=== PATIENT | male | born 1940 ===

== ENCOUNTER 2016-10-07 11:44 | Inpatient (IN) | payer MEDICARE, MEDICAID ==
[2016-10-07] MEDS ORDERED: Piperacillin/Tazobact 3.375 gm 100 ML IV STA (12:36)
--- NOTE | 2016-10-07 12:39 | C.PDOC ---
History Of Present Illness 76 y/o male sent to the ED by Dr. Hernandez for post-op wound infection, is s/p appendectomy 13 days ago performed at [facility]. Pt states he has continued to have pain since operation, and the area has become increasingly more swollen and red. Pt saw PMD Dr. Szymanski, was given Rxs for Bactrim and Doxycycline with no improvement. He denies nausea, vomiting, diarrhea, chest pain, SOB, fever. Pt's last meal was breakfast at 0745 this morning. Time Seen by Provider: 10/07/16 12:06 Chief Complaint (Nursing): Abnormal Skin Integrity History Per: Patient History/Exam Limitations: no limitations Onset/Duration Of Symptoms: Days Current Symptoms Are (Timing): Worse Quality Of Symptoms: Painful, Swollen Severity: Moderate Past Medical History Reviewed: Historical Data, Nursing Documentation, Vital Signs Vital Signs: Last Vital Signs Temp 98.3 F 10/08/16 15:10 Pulse 92 H 10/08/16 15:10 Resp 20 10/08/16 15:10 BP 131/67 10/08/16 15:10 Pulse Ox 95 10/08/16 15:10 - Medical History PMH: HTN, Hypercholesterolemia Surgical History: Appendectomy, CABG (AUGUST 29, 2001 PER PATIENT) - [employer] Procedures DRAINAGE OF ABDOMINAL WALL, OPEN APPROACH (10/07/16) Family History: States: No Known Family Hx - Social History Hx Alcohol Use: No Hx Substance Use: No - Immunization History Hx Tetanus Toxoid Vaccination: No Hx Influenza Vaccination: No Hx Pneumococcal Vaccination: No Review Of Systems Except As Marked, All Systems Reviewed And Found Negative. Constitutional: Negative for: Fever Cardiovascular: Negative for: Chest Pain Respiratory: Negative for: Shortness of Breath Gastrointestinal: Positive for: Other (post appendectomy wound infection, increased swelling and redness). Negative for: Nausea, Vomiting, Diarrhea Physical Exam - Physical Exam Appears: Non-toxic, In Acute Distress (in mild discomfort) Skin: Warm, Dry, No Rash Head: Normacephalic Oral Mucosa: Moist Cardiovascular: Rhythm Regular Respiratory: Normal Breath Sounds, No Rales, No Rhonchi, No Wheezing Gastrointestinal/Abdominal: Bowel Sounds, Soft, Tenderness (mild diffuse TTP greatest at RLQ), No Guarding, No Rebound, Other (6 cm surgical incision at RLQ swollen, tender to palpation, indurated, & erythematous. ) Extremity: Normal ROM Extremity: Bilateral: Atraumatic Neurological/Psych: Oriented x3 ED Course And Treatment - Laboratory Results Result Diagrams: 10/08/16 06:05 10/08/16 06:05 ECG: Interpreted By Me, Viewed By Me (NSR 67 bpm, normal axis, T wave inversions I, aVL, V3-V6, no acute ST changes) ECG Interpretation: Abnormal O2 Sat by Pulse Oximetry: 95 (on room air) Pulse Ox Interpretation: Normal - Other Rad CXR X-Ray: Viewed By Me, Read By Radiologist Interpretation: Accession No. : [id number]. Patient Name / ID : ALFA MCKINNEY / [id number]. Exam Date : 10/07/2016 12:28:25 ( Approved ). Study Comment : Sex / Age : M / 76Y. Creator : Toi Owusu MD. Dictator : Toi Owusu MD. Waiter And Cashier : Transport Technician : Toi Owusu MD. Approver2 : Report Date : 10/07/2016 13:02:36. My Comment : . PROCEDURE: CHEST RADIOGRAPH, 1 VIEW. HISTORY: Admission. Wound check. COMPARISON: None available. FINDINGS: LUNGS: No discrete infiltrates. PLEURA: No pneumothorax or pleural fluid seen. CARDIOVASCULAR: Cardiomegaly, pulmonary vascular congestion/ mild. OSSEOUS STRUCTURES: No significant abnormalities. VISUALIZED UPPER ABDOMEN: Normal. OTHER FINDINGS: None. Degree of severity: IMPRESSION: No active disease. . Cardiomegaly and mild pulmonary vascular congestion. Progress Note: Plan: Blood work, CXR, EKG ordered and reviewed. Patient given IV Zosyn. Dr. Hernandez requests admission to Dr. Stewart with him for surgical consult- patient to be taken to OR for I&D. 1:45pm- Spoke with Dr. Stewart, he agrees with admission to his service for postop infection with Dr. Hernandez for surgery. information services vice president notified. - Physician Consult Information Physician Contacted: Abhijeet Stewart Jr. Disposition - Disposition Disposition: HOSPITALIZED Disposition Time: 13:46 Condition: STABLE - Clinical Impression Clinical Impression: Herpes zoster, Renal failure, Postoperative infection - Scribe Statement The provider has reviewed the documentation as recorded by the Joryibursula Beltran Provider Attestation: All medical record entries made by the Joryibe were at my direction and personally dictated by me. I have reviewed the chart and agree that the record accurately reflects my personal performance of the history, physical exam, medical decision making, and the department course for this patient. I have also personally directed, reviewed, and agree with the discharge instructions and disposition. Decision To Admit - Pt Status Changed To: Hospital Disposition Of: Inpatient - Admit Certification Admit to Inpatient:: After my assessment, the patient will require hospitalization for at least two midnights. This is because of the severity of symptoms shown, intensity of services needed, and/or the medical risk in this patient being treated as an outpatient. - InPatient: Physician Admission Certification: I certify that this patient requires 2 or more midnights of care for the following reason:: see notes - . Bed Request Type: Regular Admitting Physician: Abhijeet Stewart Jr. Patient Diagnosis: Renal failure, Postoperative infection, Abscess
[2016-10-07 12:56] LABS: BASO # 0.2 K/uL (0.0-0.2); EOS # 0.2 K/uL (0.0-0.7); EOS % 2.7 % (0.0-4.0); HEMATOCRIT 30.6 % (35.0-51.0); LYMPH # 1.1 K/uL (1.0-4.3); LYMPH % 13.5 % (20.0-40.0); MEAN CELL VOLUME 87.6 fL (80.0-94.0); MEAN PLATELET VOLUME 7.7 fL (7.2-11.7); MONO # 0.7 K/uL (0.0-0.8); MONO % 8.3 % (0.0-10.0); RED CELL DISTRIBUTION WIDTH 17.5 % (11.5-14.5); WHITE BLOOD COUNT 7.8 K/uL (4.8-10.8)
[2016-10-07 13:04] LABS: INR 1.1
--- NOTE | 2016-10-07 13:04 | RAD ---
PROCEDURE: CHEST RADIOGRAPH, 1 VIEW HISTORY: Admission. Wound check COMPARISON: None available. FINDINGS: LUNGS: No discrete infiltrates. PLEURA: No pneumothorax or pleural fluid seen. CARDIOVASCULAR: Cardiomegaly, pulmonary vascular congestion/ mild. OSSEOUS STRUCTURES: No significant abnormalities. VISUALIZED UPPER ABDOMEN: Normal. OTHER FINDINGS: None. Degree of severity: IMPRESSION: No active disease. . Cardiomegaly and mild pulmonary vascular congestion.
[2016-10-07 13:07] LABS: POTASSIUM 4.5 mmol/L (3.6-5.2)
[2016-10-07 13:10] LABS: BILIRUBIN,TOTAL 0.4 mg/dL (0.2-1.3); CALCIUM 8.7 mg/dl (8.6-10.4); TOTAL PROTEIN 6.3 g/dL (6.3-8.3)
[2016-10-07] MEDS ORDERED: Piperacillin/Tazobact 3.375 gm 100 ML IVPB ONE (13:22)
--- NOTE | 2016-10-07 14:32 | CP.PCM.HP ---
History of Present Illness - History of Present Illness History of Present Illness: cc: "abdominal wound" HPI: Patient is a 76 year old male with PMHx of Hypertension, Diabetes, CAD s/p cabg, hx of CVA 23 years ago, presenting to the ED after being sent in by Dr. Hernandez for abdominal abscess. Patient's daughter at bedside giving history. Patient had an appendectomy about [address] Hernandez at [facility]. Patient started developing erythema and pain around the surgical site , with clear drainage, per the daughter. He tried taking tylenol for the pain with minimal relief. He saw his PMD, Dr. Szymanski, who gave him Bactrim and Doxycyline with no relief. Patient then got in touch with Dr. Hernandez who instructed them to come to the hospital PMD: Dr. Szymanski PMHx: As stated above PSHx: CABG in 2001, CVA 23 years ago, umbilical Hernia repair Allergies: NKDA Fam hx : Noncontributory Social hx: quit smoking 23 years ago, smoked about 20 years, 1ppd. Social alcohol use. Denies drug use. Lives at home alone, daughter lives next door. Present on Admission - Present on Admission Any Indicators Present on Admission: No Review of Systems - Constitutional Constitutional: absent: Anorexia, Chills, Fever, Frequent Falls, Weakness - EENT Eyes: absent: Blurred Vision, Change in Vision Nose/Mouth/Throat: absent: Nasal Congestion, Odynophagia, Facial Pain, Neck Pain - Cardiovascular Cardiovascular: absent: Chest Pain, Claudication, Irregular Heart Rhythm, Leg Edema, Palpitations, Pedal Edema - Respiratory Respiratory: absent: Cough, Dyspnea, Hemoptysis, Dyspnea on Exertion, Wheezing - Gastrointestinal Gastrointestinal: Abdominal Pain. absent: Constipation, Diarrhea, Nausea, Vomiting - Musculoskeletal Musculoskeletal: absent: Myalgias, Numbness, Tingling - Integumentary Integumentary: absent: Change in Hair, Striae, Swelling, Wounds - Neurological Neurological: absent: Abnormal Movements, Tingling, Tremor, Weakness - Psychiatric Psychiatric: absent: Anxiety, Panic Attacks, Paranoia, Suicidal Ideation - Endocrine Endocrine: absent: Fatigue, Palpitations Past Patient History - Past Social History Smoking Status: Former Smoker Chewing Tobacco Use: No Cigar Use: No Alcohol: Occasional Drugs: Denies Home Situation {Lives}: Alone - CARDIAC Hx Hypercholesterolemia: Yes Hx Hypertension: Yes - NEUROLOGICAL HX Cerebrovascular Accident: Yes (26 YEARS AGO PER DAUGHTER) - ENDOCRINE/METABOLIC Hx Diabetes Mellitus Type 2: Yes - PSYCHIATRIC Hx Substance Use: No - SURGICAL HISTORY Hx Appendectomy: Yes Hx Coronary Artery Bypass Graft: Yes (AUGUST 29, 2001 PER PATIENT) - ANESTHESIA Hx Anesthesia: Yes Hx Anesthesia Reactions: No Meds Allergies/Adverse Reactions: Allergies Allergy/AdvReac Type Severity Reaction Status Date / Time No Known Allergies Allergy Verified 10/07/16 11:53 Physical Exam - Constitutional Appears: Non-toxic, No Acute Distress - Head Exam Head Exam: ATRAUMATIC, NORMAL INSPECTION, NORMOCEPHALIC - Eye Exam Pupil Exam: NORMAL ACCOMODATION, PERRL - ENT Exam ENT Exam: Mucous Membranes Moist - Respiratory Exam Respiratory Exam: Clear to Auscultation Bilateral, NORMAL BREATHING PATTERN. absent: Prolonged Expiratory Phase, Rales, Rhonchi, Wheezes - Cardiovascular Exam Cardiovascular Exam: REGULAR RHYTHM, +S1, +S2 - GI/Abdominal Exam GI & Abdominal Exam: Hernia, Normal Bowel Sounds, Soft, Tenderness (tenderness along surgical site in RLQ. erythematous with induration measuring at least 4" in diameter. No active drainage noted.). absent: Firm, Guarding Additional comments: umbilical hernia present - Neurological Exam Neurological exam: Alert, CN II-XII Intact, Oriented x3 - Psychiatric Exam Psychiatric exam: Normal Affect, Normal Mood - Skin Skin Exam: Dry, Intact, Normal Color, Warm Results - Vital Signs Recent Vital Signs: Last Vital Signs Temp 97.5 F L 10/07/16 14:23 Pulse 67 10/07/16 14:23 Resp 16 10/07/16 14:23 BP 120/61 10/07/16 14:23 Pulse Ox 96 10/07/16 14:23 - Labs Result Diagrams: 10/07/16 12:49 10/07/16 12:49 Assessment & Plan (1) Abdominal abscess Status: Acute Comment: Consult Surgery- Dr. Hernandez- scheduled for OR today. Given one dose of Zosyn 3.375gm IVPB in ED (2) Diabetes Status: Acute Comment: Continue Januvia 25mg PO Daily. Accuchecks (3) Hypertension Status: Acute Comment: Continue home meds: Valsartan 320mg PO Daily (Losartan equivalent). Norvasc 5mg BID (4) BPH (benign prostatic hyperplasia) Status: Acute Comment: Continue Flomax 0.4mg PO HS. Continue Tolterodime 4mg PO Daily (5) Prophylactic measure Status: Acute Comment: Protonix 40mg PO Daily. SCDs. Hold anticoagulation for pending surgery
[2016-10-07] MEDS ORDERED: Propofol 10 mg/ml Inj (20 ML) ONE (16:38)
[2016-10-07] MEDS ORDERED: Midazolam 2 MG/2 ML VIAL ONE (16:38)
[2016-10-07] MEDS ORDERED: Lactated Ringer's 1,000 ML IV ONE ×3 (16:40→18:30)
[2016-10-07] MEDS ORDERED: Succinylcholine Chloride 20 mg/ml Syr (5 ml) IV ONE (17:07)
[2016-10-07] MEDS ORDERED: HYDROmorphone 0.5 mg/0.5 ml ISec IVP PRN (17:16)
--- NOTE | 2016-10-07 18:43 | OP ---
PROCEDURE DATE: 10/07/2016 PREOPERATIVE DIAGNOSIS: Infected abdominal wall wound abscess. POSTOPERATIVE DIAGNOSIS: Infected abdominal wall wound abscess. PROCEDURE PERFORMED: Incision and drainage of abdominal wall wound abscess. SURGEON: Dion Hernandez MD ANESTHESIA: General. ESTIMATED BLOOD LOSS: 10 mL. POSTOPERATIVE CONDITION: Stable. INDICATIONS FOR SURGERY: This is a 76-year-old male who presents with a right lower quadrant wound i nfection after an appendectomy, which was performed 10 days ago in another hospital. GROSS FINDINGS: There was a small collection laterally in the wound. It did not extend to the rest of the wound, which was a good finding. The patient had been taken to the OR under sedation due to hi s previous stroke and poor physical health. PROCEDURE: The patient was taken to the operating room. The area was prepped and draped. The previ ous clips were removed and the lateral portion of the wound was opened and the pus was drained and cu ltured. The wound was irrigated with saline, packed with wet saline gauze. The patient tolerated pr ocedure well, returned to recovery room in stable condition. Dion Hernandez MD cc: [id number] TT: 10/07/2016 18:42:45 [email or web address]
[2016-10-07] MEDS: (Novolin R) Insulin Human Regular 100 units/ml vial SC SCH ×2 (19:40→22:11)
[2016-10-07] MEDS: Lactated Ringer's 1,000 ML IV SCH (20:00)
[2016-10-07] MEDS: metroNIDAZOLE IV 500 mg/100 ml 100 ML IVPB SCH (20:01)
[2016-10-08] MEDS: metroNIDAZOLE IV 500 mg/100 ml 100 ML IVPB SCH ×2 (02:11→09:50)
[2016-10-08] MEDS: Lactated Ringer's 1,000 ML IV SCH (03:30)
[2016-10-08 05:10] VITALS: O2SAT 95
[2016-10-08 06:20] LABS: POTASSIUM 4.4 mmol/L (3.6-5.2)
[2016-10-08] MEDS: Sodium Chloride 0.9% 1,000 ML IV SCH ×2 (06:20→11:30)
[2016-10-08 06:21] LABS: IRON 55 ug/dL (49-181)
[2016-10-08 06:22] LABS: ALB/GLOB RATIO 0.9 (1.0-2.1); BILIRUBIN,TOTAL 0.5 mg/dL (0.2-1.3); TOTAL PROTEIN 5.5 g/dL (6.3-8.3)
[2016-10-08 06:23] LABS: CALCIUM 8.2 mg/dl (8.6-10.4); MAGNESIUM 1.7 mg/dL (1.6-2.3); PHOSPHOROUS 3.5 mg/dL (2.5-4.5)
[2016-10-08 06:25] LABS: BASO # 0.1 K/uL (0.0-0.2); BASO % 1.1 % (0.0-2.0); EOS # 0.3 K/uL (0.0-0.7); HEMATOCRIT 27.3 % (35.0-51.0); LYMPH # 1.4 K/uL (1.0-4.3); LYMPH % 13.4 % (20.0-40.0); MEAN CELL VOLUME 86.6 fL (80.0-94.0); MEAN CORPUSCULAR HEMOGLOBIN 28.4 pg (27.0-31.0); MEAN CORPUSCULAR HGB CONC 32.8 g/dL (33.0-37.0); MEAN PLATELET VOLUME 7.6 fL (7.2-11.7); MONO # 0.8 K/uL (0.0-0.8); MONO % 7.1 % (0.0-10.0); RED CELL DISTRIBUTION WIDTH 16.9 % (11.5-14.5); WHITE BLOOD COUNT 10.5 K/uL (4.8-10.8)
[2016-10-08] MEDS: (Novolin R) Insulin Human Regular 100 units/ml vial SC SCH ×3 (07:30→17:16)
[2016-10-08 07:57] LABS: FOLATE 12.8 ng/mL
--- NOTE | 2016-10-08 11:47 | CARD ---
APPROVED REPORT EKG Measurement Heart [id number] [id number] <Conclusion> Normal sinus rhythm T wave abnormality, consider anterolateral ischemia Abnormal ECG
[2016-10-08] MEDS ORDERED: Enoxaparin 40 mg Syringe SC SCH (12:00)
[2016-10-08 16:51] VITALS: BP 131/67; PULSE 92; RESP 20; TEMP 98.3
--- NOTE | 2016-10-08 22:33 | CP.PCM.DIS ---
Provider - Provider Date of Admission: 10/07/16 13:46 Attending physician: Abhijeet Stewart Jr, MD Time Spent in preparation of Discharge (in minutes): 34 Hospital Course - Lab Results Lab Results: Micro Results 10/07/16 17:30 Abdomen Gram Stain - Final 10/07/16 17:30 Abdomen Wound Culture - Preliminary Gram Negative Randal Most Recent Lab Values WBC 10.5 K/uL (4.8-10.8) 10/08/16 06:05 RBC 3.16 Mil/uL (4.40-5.90) L 10/08/16 06:05 Hgb 9.0 g/dL (12.0-18.0) L 10/08/16 06:05 Hct 27.3 % (35.0-51.0) L 10/08/16 06:05 MCV 86.6 fL (80.0-94.0) 10/08/16 06:05 MCH 28.4 pg (27.0-31.0) 10/08/16 06:05 MCHC 32.8 g/dL (33.0-37.0) L 10/08/16 06:05 RDW 16.9 % (11.5-14.5) H 10/08/16 06:05 Plt Count 432 K/uL (130-400) H 10/08/16 06:05 MPV 7.6 fL (7.2-11.7) 10/08/16 06:05 Neut % (Auto) 75.4 % (50.0-75.0) H 10/08/16 06:05 Lymph % (Auto) 13.4 % (20.0-40.0) L 10/08/16 06:05 [place] % (Auto) 7.1 % (0.0-10.0) 10/08/16 06:05 Eos % (Auto) 3.0 % (0.0-4.0) 10/08/16 06:05 Baso % (Auto) 1.1 % (0.0-2.0) 10/08/16 06:05 Neut # 8.0 K/uL (1.8-7.0) H 10/08/16 06:05 Lymph # 1.4 K/uL (1.0-4.3) 10/08/16 06:05 [place] # 0.8 K/uL (0.0-0.8) 10/08/16 06:05 Eos # 0.3 K/uL (0.0-0.7) 10/08/16 06:05 Baso # 0.1 K/uL (0.0-0.2) 10/08/16 06:05 PT 12.3 SECONDS (9.7-12.2) H 10/07/16 12:49 INR 1.1 10/07/16 12:49 APTT 30 SECONDS (21-34) 10/07/16 12:49 Sodium 139 mmol/L (132-148) 10/08/16 06:05 Potassium 4.4 mmol/L (3.6-5.2) 10/08/16 06:05 Chloride 107 mmol/L (98-107) 10/08/16 06:05 Carbon Dioxide 20 mmol/L (22-30) L 10/08/16 06:05 Anion Gap 16 (10-20) 10/08/16 06:05 BUN 32 mg/dL (9-20) H 10/08/16 06:05 Creatinine 2.8 MG/DL (0.8-1.5) H 10/08/16 06:05 Est GFR ( Amer) 27 10/08/16 06:05 Est GFR (Non-Af Amer) 22 10/08/16 06:05 POC Glucose (mg/dL) 208 mg/dL (65-110) H 10/08/16 16:26 Random Glucose 73 mg/dL (75-110) L 10/08/16 06:05 Calcium 8.2 mg/dl (8.6-10.4) L 10/08/16 06:05 Phosphorus 3.5 mg/dL (2.5-4.5) 10/08/16 06:05 Magnesium 1.7 mg/dL (1.6-2.3) 10/08/16 06:05 Iron 55 ug/dL (49-181) 10/08/16 06:05 TIBC 219 ug/dL (250-450) L 10/08/16 06:05 % Saturation 25 (20-55) 10/08/16 06:05 Ferritin 59.1 ng/mL 10/08/16 06:05 Total Bilirubin 0.5 mg/dL (0.2-1.3) 10/08/16 06:05 AST 18 U/L (17-59) 10/08/16 06:05 ALT 21 U/L (21-72) D 10/08/16 06:05 Alkaline Phosphatase 61 U/L (38-126) 10/08/16 06:05 Total Protein 5.5 g/dL (6.3-8.3) L 10/08/16 06:05 Albumin 2.6 g/dL (3.5-5.0) L 10/08/16 06:05 Globulin 2.9 gm/dL (2.2-3.9) 10/08/16 06:05 Albumin/Globulin Ratio 0.9 (1.0-2.1) L 10/08/16 06:05 Vitamin B12 841 pg/mL (239-931) 10/08/16 06:05 Folate 12.8 ng/mL 10/08/16 06:05 Blood Type B NEGATIVE 10/07/16 12:49 Antibody Screen Positive 10/07/16 12:49 Antibody Identification Anti Fya 10/07/16 12:49 Antigen Identification Fya Antigen - NEGATIVE 10/07/16 12:49 - Hospital Course Hospital Course: HPI: Patient is a 76 year old male with PMHx of Hypertension, Diabetes, CAD s/p cabg, hx of CVA 23 years ago, presenting to the ED after being sent in by Dr. Hernandez for abdominal abscess. Patient's daughter at bedside giving history. Patient had an appendectomy about [address] Hernandez at [facility]. Patient started developing erythema and pain around the surgical site , with clear drainage, per the daughter. He tried taking tylenol for the pain with minimal relief. He saw his PMD, Dr. Szymanski, who gave him Bactrim and Doxycyline with no relief. Patient then got in touch with Dr. Hernandez who instructed them to come to the hospital. Hospital Course: Pt was taken to the OR for Incision and Drainage of abdominal wall wound with Dr. Hernandez. Pt tolerated procedure well, as per Dr. Hernandez. Pt given a dose of vancomycin and started on flagyl. Pt restarted on home medications for diabetes, HTN, and hypercholesterolemia. Post operative instructions as per Dr. Hernandez. Discharge Exam - Head Exam Head Exam: ATRAUMATIC, NORMAL INSPECTION, NORMOCEPHALIC - Eye Exam Eye Exam: EOMI, PERRL - ENT Exam ENT Exam: Mucous Membranes Moist. absent: Mucous Membranes Dry - Respiratory Exam Respiratory Exam: Clear to PA & Lateral. absent: Rales, Wheezes - Cardiovascular Exam Cardiovascular Exam: Gallop, +S1, +S2. absent: Tachycardia - GI/Abdominal Exam GI & Abdominal Exam: Normal Bowel Sounds. absent: Distended, Firm, Guarding, Tenderness Additional comments: Wound clean and dry - Extremities Exam Extremities exam: full ROM - Neurological Exam Neurological exam: Alert, Oriented x3 - Psychiatric Exam Psychiatric exam: Normal Affect, Normal Mood - Skin Skin Exam: Normal Color, Warm Discharge Plan - Follow Up Plan Condition: FAIR Disposition: HOME/ ROUTINE Patient education suggested?: Yes Instructions: Heart Healthy Diet (DC), Acute Wound Care (DC), Abscess (GEN), Incision and Drainage (DC) Additional Instructions: SEE POST-OPERATIVE INSTRUCTIONS Referrals: Dion Hernandez MD [Staff Provider] -
--- NOTE | 2016-10-10 20:42 | CON ---
DATE: 10/08/2016 LOCATION: [id number] Phillip Kennedy to Dr. Stewart. I was called for GI consultation by the admitting medical team on 10/08/2016 as requested by the admit doctors' hospital medical team as well as the patient's own family. The entire chart is reviewed, including but not limited to that the most recent lab and radiology juana dy results, current and previous medication list, current and the previous medical events, allergy to medication list as well as all the available current and the previous medical record. Case discusse d at length with the staff on the floor. HISTORY OF PRESENT ILLNESS: This is a 76 old male, very well known case for me from previous several admissions as well as office visits, he is my private patient. He was admitted to the [facility] the Emergency Room with status post appendectomy due to postoperative wound infection with right lower quadrant abdominal pain since the surgery about 13 days prior to his admission, with anterior a bdominal wall cellulitis like picture. No reported active bleeding but with period of mild nausea with dyspepsia, but no vomiting, no diarrh ea, no chest pain or palpitation. PAST MEDICAL HISTORY: Including but not limited to hypertension, CVA, hyperlipidemia, coronary arter y disease, status post coronary artery bypass graft, known history of peptic ulcer disease, known his tory of colon polyps. The patient is with status post appendectomy. Known history of severe ____ . CURRENT MEDICATIONS: Medication lists were reviewed. FAMILY HISTORY: Unknown. SOCIAL HISTORY: No recent history of cigarette smoking or alcohol intake. The patient used to drink several years ago excessively. LABORATORY DATA: After being admitted to the hospital, initial blood workup showed low hemoglobin of 9.8 with low hematocrit 30.6 with thrombocytosis of 446, with low CO2 content of 20 indicative of me tabolic acidosis, with increased blood glucose level to 132 with increased BUN 35, creatinine 3.1. Chest x-ray showed evidence of cardiomegaly with mild pulmonary congestion. PHYSICAL EXAMINATION: GENERAL: A 76-year-old male appeared to be awake, alert, oriented, complaining of lower abdominal pa in. VITAL SIGNS: Afebrile with pulse of 84, respiratory rate 20-22, blood pressure 120/68. HEENT: Showed pale, dry oral mucoid membrane. Nonicteric sclerae. LUNGS: Few scattered crepitation with few rhonchi bilaterally and a few rales. Breathing sounds are present bilaterally. HEART: Positive S1 and S2. ABDOMEN: Soft with mild generalized tenderness, but mainly in the right lower quadrant area with hyp er-erythematous mucosa at the level of the anterior abdominal wall. No mass or organomegaly. No lars ound tenderness or guarding. EXTREMITIES: With right-sided weakness. No clubbing or cyanosis. NEUROLOGIC: No new reported neurological deficit, sensory or motor. The patient appears to be awake , alert and oriented. IMPRESSION: 1. Status post appendectomy with evidence of mild anterior abdominal wall cellulitis. 2. Known history of peptic ulcer disease with a colon polyp. 3. Anemia, most likely secondary to above. 4. Known history of hypertension, coronary artery disease, status post coronary artery bypass graft as well as history of hyperlipidemia. SUGGESTION: 1. Agree with your plan. 2. Guaiac all the stool ____ x 3. Proton pump inhibitors. Cancer markers. 3. Adjust oral intake. Sectional abdominal and pelvic CAT scan to rule out possible intrapelvic abs cess formation. 4. Further recommendations to follow. Thank you for letting me participate in your patient's case management. Phillip Kennedy MD cc: 14 TT: 10/10/2016 20:41:16 Confirmation # [id number] Dictation # [id number] [email or web address]
== END 2016-10-08 18:25 | disposition home health service (06) | DRG 857 ==
LOC: C.ER 11:44 → C.9E 13:46 → C.6T 19:22
PROVIDERS: ADMIT Internal Medicine; ATTEND Internal Medicine
PROC: 0W9F0ZZ Drainage of Abdominal Wall, Open Approach (ICD-10-PCS; principal; 2016-10-07 11:45)
DX: T81.4XXA Infection following a procedure, initial encounter (principal); L02.211 Cutaneous abscess of abdominal wall; E11.9 Type 2 diabetes mellitus without complications; Y83.8 Other surgical procedures as the cause of abnormal reaction of the patient, or of later complication, without mention of misadventure at the time of the procedure; I10 Essential (primary) hypertension; N40.0 Benign prostatic hyperplasia without lower urinary tract symptoms; Z86.73 Personal history of transient ischemic attack (TIA), and cerebral infarction without residual deficits; I25.10 Atherosclerotic heart disease of native coronary artery without angina pectoris; Z95.1 Presence of aortocoronary bypass graft; E78.00 Pure hypercholesterolemia, unspecified; Z87.891 Personal history of nicotine dependence